=== PATIENT | female | born 1995 | race Caucasian/White ===

== ENCOUNTER 2021-06-30 21:05 | Emergency (ER) | payer OTHER, BC, SELFPAY ==
[2021-06-30 21:14] VITALS: BP 105/68; PULSE 91; RESP 16; TEMP 36.7; O2SAT 98; BMI 19.8
--- NOTE | 2021-06-30 21:46 | CTR_ITS ---
PROCEDURE INFORMATION: Exam: CT Head Without Contrast Exam date and time: 06/30/2021 10:19 PM Age: 26 years old Clinical indication: Condition or disease; Convulsions or seizures; Unspecified; Patient HX: HX of seizures C/O 2x today PT is 24wks preg w/o missed or med changes; Additional info: Lazarus TECHNIQUE: Imaging protocol: Computed tomography of the head without contrast. Radiation optimization: All CT scans at this facility use at least one of these dose optimization techniques: automated exposure control; mA and/or kV adjustment per patient size (includes targeted exams where dose is matched to clinical indication); or iterative reconstruction. COMPARISON: No relevant prior studies available. RADIATION DOSE METRICS: Total DLP (mGy-cm): 824.69 FINDINGS: Brain: No hemorrhage. No edema. No mass effect. 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 Paranasal sinuses: Visualized sinuses are unremarkable. No fluid levels. Mastoid air cells: Visualized mastoid air cells are well aerated. Bones/joints: Unremarkable. No acute fracture. Soft tissues: Unremarkable. CT/CT head wo con* [id number] IMPRESSION: 1. No acute intracranial abnormality. 2. 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
--- NOTE | 2021-06-30 21:47 | ECG_ITS ---
[facility] Test Date: 2021-06-30 Pat Name: Amanda Chacon Department: Room: Gender: Female Supervisor Area: : 1995 Requested By: Babar Jiang Order Number: [id number] Margaret MD: Jeovany Sebastian M.D. Measurements Intervals [place] Rate: 90 P: 41 TX: 137 QRS: 22 QRSD: 96 T: 35 QT: 368 QTc: 450 Interpretive Statements SINUS RHYTHM INCOMPLETE RIGHT BUNDLE BRANCH BLOCK [90+ ms QRS DURATION, TERMINAL R IN V1/V2, 40+ ms S IN I/aVL/V4/V5/V6] SEPTAL MYOCARDIAL INFARCTION , OF INDETERMINATE AGE [40+ ms Q WAVE IN V1/V2] No previous ECG available for comparison Electronically Signed On 07-01-2021 19:27:53 CDT by Jeovany Sebastian M.D. [id number]
[2021-06-30 22:49] VITALS: BP 108/66; O2SAT 98
[2021-06-30] MEDS: sodium chloride 0.9% 1,000 ML 999 ML IV (22:51)
[2021-06-30] MEDS: ondansetron 2 mg/ML SDV 2 mL 4 MG IVP (22:53)
[2021-06-30 22:54] VITALS: RESP 20
[2021-06-30] MEDS: morphine 4 mg/mL SDV 1 mL IVP (22:54)
[2021-06-30 22:55] LABS: Basophils % 0.1 %; Eosinophils % 0.1 %; Hematocrit 35.6 % (37.0-47.0); Hemoglobin 12.7 g/dL (11.5-15.3); Lymphocytes # 1.3 10^3/uL (0.8-4.8); Lymphocytes % 7.4 %; Mean Corpuscular HGB Conc 35.7 g/dL (30.0-36.0); Mean Corpuscular Hemoglobin 30.9 pg (28.0-34.0); Mean Corpuscular Volume 86.6 fl (81-99); Mean Platelet Volume 8.9 fL (7.4-10.4); Monocytes # 0.6 10^3/uL (0.2-0.9); Monocytes % 3.4 %; Neutrophils # 15.28 10^3/uL (1.8-7.7); Neutrophils % 88.5 %; Nucleated Red Blood Cells % 0 %; Platelet Count 241 10^3/cmm (130-400); Red Blood Count 4.11 10^6/uL (4.1-5.3); White Blood Count 17.3 10^3/uL (4.0-10.0)
[2021-06-30 23:00] VITALS: BP 105/61; O2SAT 96
[2021-06-30 23:01] LABS: Add Urine Microscopic? YES; Bilirubin Urine Neg (Negative); Blood Urine Neg (Negative); Glucose Urine UA Norm (Normal); Ketones Urine 1+ (Negative); Leukocyte Esterase Urine Trace (Negative); Nitrate Urine Negative (Negative); Protein Urine Neg (Negative); Specific Gravity, Urine 1.025 (1.005-1.030); Urine Appearance Cloudy (CLEAR); Urine Color Yellow (Yellow); Urobilinogen Urine Norm (Negative); pH Urine 5 (5-7)
[2021-06-30 23:03] LABS: Add Urine Culture? No; Amorphous Sediment Urine 3+ /hpf; Bacteria Urine 1+ /hpf; RBC Urine 0-4 /hpf (0-2); Squamous Epithelial Cell Urine 15-25 /hpf (0-5); WBC Urine 0-4 /hpf (0-5)
[2021-06-30 23:11] LABS: Alanine Aminotransferase 12 U/L (0-33); Albumin Level 3.8 g/dL (3.5-5.2); Alkaline Phosphatase 44 IU/L (35-105); Anion Gap 13.3 (5-19); Aspartate Amino Transferase 17 U/L (0-32); Blood Urea Nitrogen 9 mg/dL (6-20); Carbon Dioxide 20 mmol/L (22-29); Chloride 100 mmol/L (98-107); Creatine Phosphokinase 168 U/L (26-192); Globulin 2.8 g/dL (1.3-4.6); Glomerular Filtration Rate 151.6 mL/min (90-130); Glucose 94 mg/dL (65-115); Magnesium 2.3 mg/dL (1.7-2.3); Osmolality Calculated 268 mOsm/kg (285-295); Phosphorus 2.5 mg/dL (2.5-4.5); Potassium 3.3 mmol/L (3.5-5.1); Sodium 130 mmol/L (136-145); Total Bilirubin 0.3 mg/dL (0.15-1.2); Total Protein 6.6 g/dL (6.6-8.7)
[2021-06-30 23:20] LABS: Alcohol Level < 10 mg/dL (0-10)
[2021-06-30 23:30] VITALS: BP 110/69; O2SAT 97
--- NOTE | 2021-06-30 23:52 | ED_ITS ---
HPI - Seizure General: Chief Complaint: Seizure Stated Complaint: wants a ct for seizures Time Seen by Provider: 06/30/21 21:37 Source: patient and family History of Present Illness: HPI Narrative: 26-year-old female, G1, P0, 23 weeks . She has a history of seizure disorder. She is experienced 2 seizures tonight. They were her normal seizures, where she is unresponsive, experiences tonic-clonic type movements. She remains on seizure medication despite at her neurologist's recommendation. She has not changed dosages, and has not missed medication. No recent illnesses, fever, etc. No history of vaginal bleeding or discharge. She is feeling her baby normally. She does complain of a 10 out of 10 headache MD complaint: seizure Onset (ago): hour(s) Description of Episode: loss of consciousness and tonic-clonic movement -: minutes(s) Witnessed: Yes - by Bystander Trauma: No Seizure History: Yes Place: Home Possible Precipitating Event: none Associated symptoms: Reports confusion (afterward, cleared now); Deny chest pain, chills, cough, fever(s), rash, short of breath or weakness Treatments prior to arrival: none Review of Systems Const: Denies: fever(s) or chills Eyes: Denies: change in vision ENMT: Denies: throat pain Card: Denies: chest pain Resp: Denies: dyspnea, productive cough or non-productive cough GI: Denies: abdominal pain, nausea or vomiting Musc: Denies: neck pain Neuro: Reports: headache(s) and confusion (afterward, cleared now); Denies: numbness in extremities or weakness in extremities PFS ED PFSH: Medical History Generalized seizure Female Reproductive History: Date of last menstrual period: 01/24/21 Physical Exam Const: COMMON NORMALS: no acute distress and alert GENERAL APPEARANCE: cooperative; not ill appearing HENMT: COMMON NORMALS: normocephalic, atraumatic and Normal external nose present HEAD & SCALP: normocephalic and atraumatic FACE & SINUS: normal facial exam and face symmetric NOSE: Normal external nose present Eye: COMMON NORMALS: Equal, round and reactive pupils present and EOMs intact bilaterally PUPIL: Yes Equal, round and reactive pupils present Chest: COMMONS NORMALS: normal inspection of the chest Resp: COMMON NORMALS: normal respiratory effort, No use of accessory muscles and clear to auscultation bilaterally AUSCULTATION: clear to auscultation bilaterally Cardio: COMMON NORMALS: regular rate and regular rhythm RATE: regular rate RHYTHM: regular rhythm GI: COMMON NORMALS: Soft to palpation PALPATION: Yes Soft to palpation, No Tenderness to palpation present (GI) and Yes Other GI palpation findings present (Gravid, appropriate size just above the umbilicus) Neuro: MARRY COMA SCALE: document GCS findings Marry coma scale eye opening: Spontaneous [place] coma scale verbal response: Orientated [place] coma scale motor response: Obey commands Marry coma scale total score: 15 SENS ORIUM/ORIENTATION: Yes alert CRANIAL NERVES: Yes CN normal except as noted COORDINATION/BALANCE: [id number] test normal SPEECH: speech normal SENSORY EXAM: Yes extremities MOTOR EXAM: Pronator motor function not present COORDINATION: [id number] test normal Psych: COMMON NORMALS: mental status grossly normal and cooperative Course Vital Signs: Vital signs: Vital Signs Temperature 98.0 F 06/30/21 21:14 Pulse Rate 91 06/30/21 21:14 Respiratory Rate 20 H 06/30/21 22:54 Blood Pressure 99/64 07/01/21 00:00 Pulse Oximetry 97 07/01/21 00:30 MDM - Seizure MDM Narrative Medical decision making narrative: No signs of seizure here. She is back to baseline. Pain improved after morphine, and she has been resting comfortably. 1 L of fluid given. Potassium is mildly low, and is repleted here. Other laboratory benign. Head CT is negative for acute change. She will be allowed discharge. Lab Data Result diagrams: 06/30/21 22:51 06/30/21 22:51 Labs: Radiology Impressions Head CT 06/30/21 21:46 IMPRESSION: 1. No acute intracranial abnormality. 2. 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 Laboratory Results WBC 17.3 10^3/uL (4.0-10.0) H 06/30/21 22:51 RBC 4.11 10^6/uL (4.1-5.3) 06/30/21 22:51 Hgb 12.7 g/dL (11.5-15.3) 06/30/21 22:51 Hct 35.6 % (37.0-47.0) L 06/30/21 22:51 MCV 86.6 fl (81-99) 06/30/21 22:51 MCH 30.9 pg (28.0-34.0) 06/30/21 22:51 MCHC 35.7 g/dL (30.0-36.0) 06/30/21 22:51 RDW 13.0 % (12.1-15.1) 06/30/21 22:51 Plt Count 241 10^3/cmm (130-400) 06/30/21 22:51 MPV 8.9 fL (7.4-10.4) 06/30/21 22:51 Neut % (Auto) 88.5 % 06/30/21 22:51 Lymph % (Auto) 7.4 % 06/30/21 22:51 [place] % (Auto) 3.4 % 06/30/21 22:51 Eos % (Auto) 0.1 % 06/30/21 22:51 Baso % (Auto) 0.1 % 06/30/21 22:51 Neut # (Auto) 15.28 10^3/uL (1.8-7.7) H 06/30/21 22:51 Lymph # (Auto) 1.3 10^3/uL (0.8-4.8) 06/30/21 22:51 [place] # (Auto) 0.6 10^3/uL (0.2-0.9) 06/30/21 22:51 Eos # (Auto) 0.0 10^3/uL (0.0-0.8) 06/30/21 22:51 Baso # (Auto) 0.0 10^3/uL (0.0-0.1) 06/30/21 22:51 Nucleated RBC % (auto) 0 % 06/30/21 22:51 Nucleated RBCs # 0.0 /100WBC 06/30/21 22:51 Sodium 130 mmol/L (136-145) L 06/30/21 22:51 Potassium 3.3 mmol/L (3.5-5.1) L 06/30/21 22:51 Chloride 100 mmol/L (98-107) 06/30/21 22:51 Carbon Dioxide 20 mmol/L (22-29) L 06/30/21 22:51 Anion Gap 13.3 (5-19) 06/30/21 22:51 BUN 9 mg/dL (6-20) 06/30/21 22:51 Creatinine 0.5 mg/dL (0.5-0.9) 06/30/21 22:51 GFR Calculation 151.6 mL/min (90-130) H 06/30/21 22:51 Glucose 94 mg/dL (65-115) 06/30/21 22:51 Calculated Osmolality 268 mOsm/kg (285-295) L 06/30/21 22:51 Calcium 8.0 mg/dL (8.5-10.5) L 06/30/21 22:51 Phosphorus 2.5 mg/dL (2.5-4.5) 06/30/21 22:51 Magnesium 2.3 mg/dL (1.7-2.3) 06/30/21 22:51 Total Bilirubin 0.3 mg/dL (0.15-1.2) 06/30/21 22:51 AST 17 U/L (0-32) 06/30/21 22:51 ALT 12 U/L (0-33) 06/30/21 22:51 Alkaline Phosphatase 44 IU/L (35-105) 06/30/21 22:51 Creatine Kinase 168 U/L (26-192) 06/30/21 22:51 Total Protein 6.6 g/dL (6.6-8.7) 06/30/21 22:51 Albumin 3.8 g/dL (3.5-5.2) 06/30/21 22:51 Globulin 2.8 g/dL (1.3-4.6) 06/30/21 22:51 Urine Color Yellow (Yellow) 06/30/21 22:12 Urine Appearance Cloudy (CLEAR) 06/30/21 22:12 Urine pH 5 (5-7) 06/30/21 22:12 Ur Specific [place] 1.025 (1.005-1.030) 06/30/21 22:12 Urine Protein Neg (Negative) 06/30/21 22:12 Urine Glucose (UA) Norm (Normal) 06/30/21 22:12 Urine Ketones 1+ (Negative) H 06/30/21 22:12 Urine Blood Neg (Negative) 06/30/21 22:12 Urine Nitrate Negative (Negative) 06/30/21 22:12 Urine Bilirubin Neg (Negative) 06/30/21 22:12 Urine Urobilinogen Norm mg/dL (Negative) 06/30/21 22:12 Ur Leukocyte Esterase Trace (Negative) H 06/30/21 22:12 Urine RBC 0-4 /hpf (0-2) H 06/30/21 22:12 Urine WBC 0-4 /hpf (0-5) H 06/30/21 22:12 Ur Squamous Epith Cells 15-25 /hpf (0-5) H 06/30/21 22:12 Amorphous Sediment 3+ /hpf 06/30/21 22:12 Urine Bacteria 1+ /hpf (NONE) H 06/30/21 22:12 Ethyl Alcohol < 10 mg/dL (0-10) 06/30/21 22:51 Discharge Plan Discharge Patient Disposition: Home Clinical Impression: Generalized seizure Condition: Stable Discharge Orders: Discharge ED (Routine); Ordered 07/01/21 Ordered By: Babar Blankenship Discharge Diet: Advance as tolerated Discharge Activity: Limit activity as instructed Patient Instructions: Recurrent Seizures in Adults (ED) Activity Restrictions/Additional Instructions: Return for repeated episodes of seizure, change in mental status, vomiting liquids or medications, vaginal bleeding or increasing abdominal cramping, any other concerning symptoms. Call your neurologist on Friday, they may wish to see you or make changes to your treatment. Coding Level of Care Code ED Pipe Bending Machine Operator for Maegan Gardner
[2021-07-01] VITALS: BP 99/64; O2SAT 98
[2021-07-01 00:30] VITALS: O2SAT 97
[2021-07-01] MEDS: potassium chloride ER 20 mEq Tablet PO (00:59)
== END 2021-07-01 01:00 | disposition home or self-care (01) ==
PROVIDERS: Emergency Provider Emergency Medicine
DX: O99.352 Diseases of the nervous system complicating pregnancy, second trimester (principal); G40.409 Other generalized epilepsy and epileptic syndromes, not intractable, without status epilepticus; Z3A.23 23 weeks gestation of pregnancy
CPT/HCPCS: 70450; 80053; 80307; 81001; 82550; 83735; 84100; 85025; 93005; 96361; 96374; 96375; 99284; J2270; J2405; J7030

== ENCOUNTER 2023-03-26 14:47 | Emergency (ER) | payer BC, MEDICAID, SELFPAY ==
[2023-03-26 14:50] VITALS: BP 123/74; PULSE 81; RESP 18; TEMP 36.4; O2SAT 100; BMI 18.2
--- NOTE | 2023-03-26 14:53 | XR_ITS ---
WS: [id number] Exam: XR chest 1V portable [id number] Date/Time of Exam: 03/26/2023 2:54 PM Reason For Exam: dyspnea/cough No previous exams. The lungs are clear and fully inflated. Normal cardiomediastinal silhouette and regional bony element s. Neurostimulator pack superimposes the LEFT shoulder region. IMPRESSION: 1. No acute cardiopulmonary finding.
--- NOTE | 2023-03-26 14:53 | W.ED.ABDPA2 ---
HPI - Abdominal Pain General: Chief Complaint: Abdominal Pain Stated Complaint: Abd Pain Time Seen by Provider: 03/26/23 14:49 Source: patient Mode of arrival: EMS History of Present Illness: 27-year-old female presents by EMS complaining of abdominal pain. She is epigastric pain right upper quadrant pain she has been very nauseous. Denies dysuria or frequency no hematochezia melena hematemesis or coffee-ground emesis. No previous abdominal surgeries she does have a history of seizures. She is she has a VNS due to seizures. No recent seizures. MD elicited complaint: abdominal pain Onset (ago): hour(s) (2) Pain Consistency: constant Location: Epigastric Quality: cramping Exacerbating factors: nothing Relieving factors: nothing Associated Symptoms: Reports nausea; Denies chills, diarrhea, dysuria, fever(s) and vomiting Review of Systems Const: Denies: fever(s) or chills Card: Denies: chest pain Resp: Denies: dyspnea GI: Reports: abdominal pain and nausea; Denies: vomiting or diarrhea : Denies: dysuria, urinary frequency or urinary urgency Musc: Denies: neck pain or back pain Skin/Breast: Denies: rash PFSH ED PFSH: Medical History Generalized seizure Physical Exam Const: GENERAL APPEARANCE: cooperative and comfortable ORIENTATION/CONSCIOUSNESS: Yes awake, Yes oriented to person, Yes oriented to place and Yes oriented to time HENMT: COMMON NORMALS: normocephalic, atraumatic and hearing grossly normal bilaterally HEAD & SCALP: normocephalic and atraumatic Resp: COMMON NORMALS: normal respiratory effort, No retractions, No use of accessory muscles and clear to auscultation bilaterally AUSCULTATION: clear to auscultation bilaterally Cardio: COMMON NORMALS: regular rate, regular rhythm and No murmurs present (Cardio) RATE: regular rate RHYTHM: regular rhythm GI: COMMON NORMALS: No hepatosplenomegaly present AUSCULTATION: Yes normoactive bowel sounds PALPATION: Yes Tenderness to palpation present (GI), No Guarding due to palpation present (GI) and Yes No hepatosplenomegaly present Extremity: COMMON NORMALS: normal to inspection, capillary refill normal, no clubbing, cyanosis or edema, no calf tenderness and no pedal edema Neuro: SENSORIUM/ORIENTATION: Yes oriented to person, Yes oriented to place and Yes oriented to time Skin: COMMON NORMALS: no rashes or lesions noted GENERAL SKIN EXAM: no rashes or lesions noted Course Vital Signs: Vital signs: Vital Signs Temperature 97.6 F 03/26/23 14:50 Pulse Rate 81 03/26/23 14:50 Respiratory Rate 18 03/26/23 15:03 Blood Pressure 123/74 03/26/23 15:03 Pulse Oximetry 100 03/26/23 14:50 Oxygen Delivery Me thod Room Air 03/26/23 14:50 MDM - Abdominal Pain Medical Decision Making Laboratory test CT abdomen unremarkable. Patient is mostly resolved her symptoms at this point. Will start on Protonix 40 mg daily have her follow-up with her primary care doctor. She does have improvement with the Protonix. Medical Records I reviewed the patient's medical records. Lab Data I reviewed the patient's lab results. 03/26/23 14:55 03/26/23 14:55 Labs/Radiology: Radiology Impressions Abdomen/Pelvis CT 03/26/23 15:09 IMPRESSION: No acute findings. COMMENTS: Consistent with the [employer]'s Incidental Findings Committee white paper (J Am Brenton Radiol 2018): Any incidental renal lesion less than 1 cm or classified as too small to characterize, or any incidental cystic renal lesion characterized as simple-appearing, is likely benign. No follow-up imaging is recommended for these lesions per consensus recommendations based on imaging criteria. Laboratory Results WBC 6.02 10^3/uL (3.29-11.43) 03/26/23 14:55 RBC 5.15 10^6/uL (3.85-5.65) 03/26/23 14:55 Hgb 15.30 g/dL (11.27-16.99) 03/26/23 14:55 Hct 43.7 % (36-47) 03/26/23 14:55 MCV 84.9 fl (85-98) L 03/26/23 14:55 MCH 29.7 pg (27-33) 03/26/23 14:55 MCHC 35.0 g/dL (30-55) 03/26/23 14:55 RDW 12.1 % (12.1-15.1) 03/26/23 14:55 Plt Count 243 10^3/cmm (157-399) 03/26/23 14:55 MPV 9.7 fL (7.4-10.4) 03/26/23 14:55 Neut % (Auto) 54.4 % 03/26/23 14:55 Lymph % (Auto) 39.4 % 03/26/23 14:55 [place] % (Auto) 3.8 % 03/26/23 14:55 Eos % (Auto) 1.7 % 03/26/23 14:55 Baso % (Auto) 0.5 % 03/26/23 14:55 Neut # (Auto) 3.28 10^3/uL (1.8-7.7) 03/26/23 14:55 Lymph # (Auto) 2.4 10^3/uL (0.8-4.8) 03/26/23 14:55 [place] # (Auto) 0.2 10^3/uL (0.2-0.9) 03/26/23 14:55 Eos # (Auto) 0.1 10^3/uL (0.0-0.8) 03/26/23 14:55 Baso # (Auto) 0.0 10^3/uL (0.0-0.1) 03/26/23 14:55 Nucleated RBC % (auto) 0 % 03/26/23 14:55 Nucleated RBCs # 0.0 /100WBC 03/26/23 14:55 Sodium 140 mmol/L (136-145) 03/26/23 14:55 Potassium 3.8 mmol/L (3.5-5.1) 03/26/23 14:55 Chloride 101 mmol/L (98-107) 03/26/23 14:55 Carbon Dioxide 25 mmol/L (22-29) 03/26/23 14:55 Anion Gap 17.8 (5-19) 03/26/23 14:55 BUN 14 mg/dL (6-20) 03/26/23 14:55 Creatinine 0.6 mg/dL (0.5-0.9) 03/26/23 14:55 GFR Calculation 121.8 mL/min (90-130) 03/26/23 14:55 Glucose 100 mg/dL (65-115) 03/26/23 14:55 Calculated Osmolality 291 mOsm/kg (285-295) 03/26/23 14:55 Calcium 10.6 mg/dL (8.5-10.5) H 03/26/23 14:55 Total Bilirubin 0.5 mg/dL (0.15-1.2) 03/26/23 14:55 AST 16 U/L (0-32) 03/26/23 14:55 ALT 12 U/L (0-33) 03/26/23 14:55 Alkaline Phosphatase 66 U/L (35-105) 03/26/23 14:55 Total Protein 7.7 g/dL (6.6-8.7) 03/26/23 14:55 Albumin 5.1 g/dL (3.5-5.2) 03/26/23 14:55 Globulin 2.6 g/dL (1.3-4.6) 03/26/23 14:55 Lipase 40 U/L (13-60) 03/26/23 14:55 HCG, Qual Negative (Negative) 03/26/23 14:55 Urine Color Yellow (Yellow) 03/26/23 15:45 Urine Appearance Cloudy (CLEAR) A 03/26/23 15:45 Urine pH 8 (5-7) H 03/26/23 15:45 Ur Specific [place] 1.020 (1.005-1.030) 03/26/23 15:45 Urine Protein Neg (Negative) 03/26/23 15:45 Urine Glucose (UA) Norm (Normal) 03/26/23 15:45 Urine Ketones Negative (Negative) 03/26/23 15:45 Urine Blood Neg (Negative) 03/26/23 15:45 Urine Nitrate Negative (Negative) 03/26/23 15:45 Urine Bilirubin Neg (Negative) 03/26/23 15:45 Prot Sulfosalicylic Acd Negative (Negative) 03/26/23 15:45 Urine Urobilinogen Norm mg/dL (Negative) 03/26/23 15:45 Ur Leukocyte Esterase Negative (Negative) 03/26/23 15:45 Urine RBC None /hpf (0-2) 03/26/23 15:45 Urine WBC None /hpf (0-5) 03/26/23 15:45 Ur Squamous Epith Cells None /hpf (0-5) 03/26/23 15:45 Ur Transition Epith Cell 0-4 /hpf 03/26/23 15:45 Amorphous Sediment 3+ /hpf 03/26/23 15:45 Urine Bacteria Trace /hpf (NONE) 03/26/23 15:45 Urine Mucus 1+ /hpf 03/26/23 15:45 All radiology interpretation(s) finalized by discharge Discharge Plan Discharge Patient Disposition: Home Clinical Impression: Abdominal pain, Gastroesophageal reflux disease Condition: Stable Prescriptions: New Protonix 40 mg tablet,delayed release (DR/EC) 40 mg PO DAILY Qty: 30 0RF No Action Mirena 21 mcg/24 hours (8 yrs) 52 mg Intrauterine Device See Rx Instructions .ROUTE .COMPLEX Rx Instructions: intrauterinely as directed lamotrigine 200 mg tablet 200 mg PO BID Rx Instructions: take with 50mg to =250mg bid Allergy Relief (cetirizine) 10 mg tablet 10 mg PO DAILY PRN (Reason: Allergy Symptoms) ibuprofen 800 mg tablet 800 mg PO TID PRN (Reason: Pain) ondansetron 8 mg tablet,disintegrating 8 mg PO Q8H PRN (Reason: Nausea And Vomiting) lamotrigine 25 mg tablet 50 mg PO BID Rx Instructions: take with 200mg tab to =250mg bid fluticasone propionate 50 mcg/actuation spray,suspension 2 spray INTRANASAL DAILY PRN (Reason: Allergy Symptoms) rizatriptan 5 mg tablet See Rx Instructions .ROUTE .COMPLEX Rx Instructions: TAKE ONE TABLET BY MOUTH ONCE MAY REPEAT DOSE ONCE IN 2 HOURS. DO NOT EXCEED 4 DOSES IN 24 HOURS. Discharge Orders: Discharge ED (Routine); Ordered 03/26/23 Ordered By: Anup Jackson Discharge Diet: Usual diet Discharge Activity: Resume usual activity Patient Instructions: Abdominal Pain (ED), Opioid Safety, Pain Management Activity Restrictions/Additional Instructions: Thank you for choosing [facility] for your healthcare needs today. Please realize this is an emergency room and that we are providing you with a medical screening exam and this may not be complete and all inclusive of all the testing and or work up that you may need to determine your ailment or severity of your illness. It is very important that you follow up as instructed or that you return to the Emergency Department should you have concerns or if your condition changes or worsens in any way. You are seen for abdominal pain CT and laboratory tests are unremarkable. Since your pain is for the most part resolved recommend you start on Protonix 40 mg daily follow-up with primary care doctor return if worsens. Coding Level of Care Code ED Ad Operations Intern for Maegan Gardner
[2023-03-26 15:02] LABS: Basophils % 0.5 %; Eosinophils # 0.1 10^3/uL (0.0-0.8); Eosinophils % 1.7 %; Hematocrit 43.7 % (36-47); Lymphocytes # 2.4 10^3/uL (0.8-4.8); Lymphocytes % 39.4 %; Mean Corpuscular Hemoglobin 29.7 pg (27-33); Mean Corpuscular Volume 84.9 fl (85-98); Mean Platelet Volume 9.7 fL (7.4-10.4); Monocytes # 0.2 10^3/uL (0.2-0.9); Monocytes % 3.8 %; Neutrophils # 3.28 10^3/uL (1.8-7.7); Neutrophils % 54.4 %; Nucleated Red Blood Cells % 0 %; Platelet Count 243 10^3/cmm (157-399); Red Blood Count 5.15 10^6/uL (3.85-5.65); Red Cell Distribution Width 12.1 % (12.1-15.1); White Blood Count 6.02 10^3/uL (3.29-11.43)
[2023-03-26 15:03] VITALS: BP 123/74; RESP 18
--- NOTE | 2023-03-26 15:09 | CTR_ITS ---
PROCEDURE INFORMATION: Exam: CT Abdomen And Pelvis With Contrast Exam date and time: 03/26/2023 4:04 PM Age: 27 years old Clinical indication: Abdominal pain; Other: Ruq pain; Additional info: Abd pain TECHNIQUE: Imaging protocol: Computed tomography of the abdomen and pelvis with contrast. Radiation optimization: All CT scans at this facility use at least one of these dose optimization techniques: automated exposure control; mA and/or kV adjustment per patient size (includes targeted exams where dose is matched to clinical indication); or iterative reconstruction. Contrast material: OMNI 350; Contrast volume: 100 ml; Contrast route: INTRAVENOUS (IV); COMPARISON: CR XR chest 1V portable [id number] 03/26/2023 2:56 PM RADIATION DOSE METRICS: Total DLP (mGy-cm): 324.71 FINDINGS: Liver: Normal. No mass. Gallbladder and bile ducts: Contracted gallbladder. No calcified stones. No ductal dilation. Pancreas: Normal. No ductal dilation. Spleen: Normal. No splenomegaly. Adrenal glands: Normal. No mass. Kidneys and ureters: A few subcentimeter cysts are noted in the left kidney. No hydronephrosis. Stomach and bowel: Unremarkable. No obstruction. No mucosal thickening. Appendix: No evidence of appendicitis. Intraperitoneal space: No free air. No significant fluid collection. Vasculature: Unremarkable. No abdominal aortic aneurysm. Lymph nodes: Unremarkable. No enlarged lymph nodes. Urinary bladder: Unremarkable as visualized. Reproductive: Intrauterine device noted in expected positioning. Bones/joints: No acute fracture. Soft tissues: Unremarkable. CT/CT abdomen pelvis w con* [id number] IMPRESSION: No acute findings. COMMENTS: Consistent with the [employer]'s Incidental Findings Committee white paper (J Am Brenton Radiol 2018): Any incidental renal lesion less than 1 cm or classified as too small to characterize, or any incidental cystic renal lesion characterized as simple-appearing, is likely benign. No follow-up imaging is recommended for these lesions per consensus recommendations based on imaging criteria.
[2023-03-26] MEDS: lidocaine 2% viscous 15 ML, aluminum-mag hydrox-simethicon 30 ML, sucralfate oral liq 1 GM PO (15:23)
[2023-03-26] MEDS: sodium chloride 0.9% 1,000 ML 999 ML IV (15:26)
[2023-03-26 15:30] LABS: Alanine Aminotransferase 12 U/L (0-33); Albumin Level 5.1 g/dL (3.5-5.2); Alkaline Phosphatase 66 U/L (35-105); Aspartate Amino Transferase 16 U/L (0-32); Blood Urea Nitrogen 14 mg/dL (6-20); Calcium 10.6 mg/dL (8.5-10.5); Carbon Dioxide 25 mmol/L (22-29); Chloride 101 mmol/L (98-107); Globulin 2.6 g/dL (1.3-4.6); Glomerular Filtration Rate 121.8 mL/min (90-130); Glucose 100 mg/dL (65-115); Lipase 40 U/L (13-60); Osmolality Calculated 291 mOsm/kg (285-295); Sodium 140 mmol/L (136-145); Total Bilirubin 0.5 mg/dL (0.15-1.2); Total Protein 7.7 g/dL (6.6-8.7)
[2023-03-26 15:34] LABS: Anion Gap 17.8 (5-19); Potassium 3.8 mmol/L (3.5-5.1)
[2023-03-26 15:46] LABS: HCG, Serum Qual Negative (Negative)
[2023-03-26] MEDS: iohexol 350 mg/mL 500 mL Btl (per mL) IV (16:13)
[2023-03-26 16:14] LABS: Add Urine Microscopic? YES; Bilirubin Urine Neg (Negative); Blood Urine Neg (Negative); Glucose Urine UA Norm (Normal); Ketones Urine Negative (Negative); Leukocyte Esterase Urine Negative (Negative); Nitrate Urine Negative (Negative); Protein Urine Neg (Negative); Sulfosalicylic Acid Urine Negative (Negative); Urine Appearance Cloudy (CLEAR); Urine Color Yellow (Yellow); Urobilinogen Urine Norm (Negative); pH Urine 8 (5-7)
[2023-03-26 16:15] LABS: Bacteria Urine TRACE /hpf; Transitional Epi Cells Urine 0-4 /hpf
[2023-03-26 16:16] LABS: Add Urine Culture? No; Amorphous Sediment Urine 3+ /hpf; Mucus Urine 1+ /hpf
== END 2023-03-26 16:42 | disposition home or self-care (01) ==
PROVIDERS: Emergency Provider Family Medicine; PCP Nurse Practitioner Family
DX: K21.9 Gastro-esophageal reflux disease without esophagitis (principal)
CPT/HCPCS: 71045; 74177; 80053; 81001; 83690; 84703; 85025; 99285; J7030; Q9967